=== PATIENT | female | born 1995 | race Caucasian/White ===

== ENCOUNTER 2017-07-22 05:54 | Inpatient (IN) | payer OTHER ==
[2017-07-22] MEDS ORDERED: LIDOCAINE 1% (PF) 10 MG/ML (30 ML SDV) SQ PRN (06:16)
[2017-07-22] MEDS ORDERED: TERBUTALINE 1 MG/ML VIAL SQ PRN (06:16)
[2017-07-22] MEDS ORDERED: METHYLERGONOVINE 0.2 MG/ML 1 ML AMP IM PRN (06:16)
[2017-07-22] MEDS ORDERED: CARBOPROST TROMETHAMINE 250 MCG/ML 1 ML AMP IM PRN (06:16)
[2017-07-22] MEDS ORDERED: OXYTOCIN 10 UNIT/ML 1 ML VIAL IM PRN (06:16)
[2017-07-22 06:52] LABS: Basophils % (A) 0 %; Eosinophils # (A) 0.2 k/uL (0-0.7); Eosinophils % (A) 1 %; HCT 36.9 % (34.0-46.0); HGB 12.7 gm/dL (11.4-16.0); Lymphocytes # (A) 2.5 k/uL (1.0-4.8); Lymphocytes % (A) 16 %; MCH 32.1 pg (25.0-35.0); MCHC 34.3 g/dL (31.0-37.0); MCV 93.8 fL (80.0-100.0); Mean Platelet Volume 9.1; Monocytes # (A) 0.9 k/uL (0-1.0); Monocytes % (A) 6 %; Neutrophils # (A) 11.7 k/uL (1.3-7.7); Neutrophils % (A) 74 %; Platelet Count 224 k/uL (150-450); RBC 3.94 m/uL (3.80-5.40); RDW 13.4 % (11.5-15.5); WBC 15.7 k/uL (4.0-11.0)
[2017-07-22 06:58] LABS: Glucose,Urine (UA) Negative (Negative); Ketones,Urine Negative (Negative); Protein,Urine Negative (Negative)
[2017-07-22] MEDS: LACTATED RINGERS 1,000 ML IV SCH ×3 (07:00→15:52)
[2017-07-22] MEDS: OXYTOCIN 20 UNITS/1000 ML NS 1,000 ML IV SCH ×3 (07:00→23:17)
[2017-07-22 07:19] VITALS: BMI 33.0
--- NOTE | 2017-07-22 08:34 | P.HPOB ---
History of Present Illness H&P Date: 07/22/17 Chief Complaint: IUP at 37-5/7 weeks, gestational hypertension This is a 21-year-old 4 para 0030 at 37-5/7 weeks with an estimated due date of 08/07/2017. Patient is been watched closely for elevated blood pressures. Patient is noted to be truly gestational hypertension. Patient has had preeclampsia labs done which have been negative in nature this morning she states she feels well yesterday she was complaining of a headache. She notes good movement and denies loss of fluid or vaginal bleeding. On blood work her blood type was noted to be O+, rubella immune, RPR nonreactive, hepatitis B surface antigen negative, HIV negative, GBS negative, of note patient did have an ultrasound revealing dilation of the renal pelvis which has been stable through the . Review of Systems Constitutional: Denies chills, Denies fever Cardiovascular: Reports as per HPI, Reports edema, Denies chest pain Gastrointestinal: Reports nausea, Reports vomiting, Denies constipation, Denies diarrhea Genitourinary: Reports Past Medical History Past Medical History: No Reported History History of Any Multi-Drug Resistant Organisms: None Reported Past Surgical History: No Surgical Hx Reported Past Anesthesia/Blood Transfusion Reactions: No Reported Reaction Past Psychological History: Anxiety, Depression Smoking Status: Current every day smoker Past Alcohol Use History: None Reported Past Drug Use History: None Reported - Past Family History Mother Family Medical History: No Reported History Medications and Allergies Home Medications Medication Instructions Recorded Confirmed Type Pnv,Calcium 72/Iron/Folic Acid 1 tab PO DAILY 07/05/17 07/22/17 History [ Plus Tablet] Ranitidine HCl [Zantac] 150 mg PO BID 07/05/17 07/22/17 History Acetaminophen [Tylenol] 500 mg PO Q4-6H PRN 07/22/17 07/22/17 History Calcium Carbonate [Tums] 500 mg PO Q4HR PRN 07/22/17 07/22/17 History Allergies Allergy/AdvReac Type Severity Reaction Status Date / Time amoxicillin Allergy Anaphylaxis Verified 07/22/17 06:13 Penicillins Allergy Anaphylaxis Verified 07/22/17 06:13 Exam Osteopathic Statement: *. No significant issues noted on an osteopathic structural exam other than those noted in the History and Physical/Consult. - Vital Signs Vital signs: Vital Signs Temp Pulse Resp BP 07/22/17 07:11 97.6 F 96 16 140/83 Intake and Output 07/21/17 07/22/17 07/22/17 22:59 06:59 14:59 Other: Weight 82.1 kg 82.1 kg Results Result Diagrams: 07/22/17 06:30 Abnormal Lab Results - Last 24 Hours (Table) 07/22/17 Range/Units 06:30 WBC 15.7 H (4.0-11.0) k/uL Neutrophils # 11.7 H (1.3-7.7) k/uL Assessment and Plan (1) Gestational HTN Current Visit: Yes Status: Acute Code(s): O13.9 - GESTATIONAL HTN W/O SIGNIFICANT PROTEINURIA, UNSP TRIMESTER SNOMED Code(s): 23831357 Plan: Given her elevated blood pressures and symptoms of headache nausea vomiting plan is to induce labor via Pitocin. Will plan on Pitocin induction of labor per protocol, patient states understanding of delivery at 37 weeks given her gestational age. We will order Stadol, epidural as needed for analgesia. Time with Patient: Less than 30
[2017-07-22 08:38] LABS: ALT 23 U/L (9-52); AST 16 U/L (14-36); Blood Urea Nitrogen 5 mg/dL (7-17); Uric Acid 5.1 mg/dL (3.7-7.4)
[2017-07-22 08:54] LABS: LDH 379 U/L (313-618)
[2017-07-22] MEDS: BUTORPHANOL 1 MG/ML 1 ML VIAL IV PRN ×2 (10:24→12:31)
[2017-07-22] MEDS ORDERED: fentaNYL (PF) 50 MCG/ML 5 ML AMP ONE ×2 (14:10)
[2017-07-22] MEDS ORDERED: BUPIVACAINE (PF) 0.25% 30 ML VIAL ONE (14:10)
[2017-07-22] MEDS ORDERED: LANOLIN CREAM 5 GM TUBE TOPICAL PRN (22:45)
[2017-07-22] MEDS ORDERED: WITCH HAZEL 1 EACH MED..PAD TOPICAL PRN (22:45)
[2017-07-22] MEDS ORDERED: diphenhydrAMINE 50 MG/ML 1 ML VIAL IVP PRN ×2 (22:45)
[2017-07-22] MEDS ORDERED: ZOLPIDEM 5 MG TAB PO PRN (22:45)
[2017-07-22] MEDS ORDERED: SIMETHICONE 80 MG CHEWABLE PO PRN (22:45)
[2017-07-22] MEDS ORDERED: BENZOCAINE/MENTHOL SPRAY 1 GM/SPRAY AEROSOL TOPICAL PRN (22:45)
[2017-07-22] MEDS ORDERED: diphenhydrAMINE 25 MG CAP PO PRN (22:45)
[2017-07-22] MEDS ORDERED: HYDROCORTISONE 2.5% RECTAL CREAM 30 GM TUBE RECTAL PRN (22:45)
[2017-07-22] MEDS ORDERED: diphenhydrAMINE 50 MG CAP PO PRN (22:45)
--- NOTE | 2017-07-22 22:56 | P.PROBDLV ---
Vaginal Delivery Note - . Vaginal Delivery Note: This is a 21yo at 37 5/7 weeks, EDC 08/07/2017. Patient was being monitored for gestational htn, and induction was scheduled secondary to this. Pt progressed to complete, and began pushing. head was delivered gently, the anterior shoulder was then delivered by gentle downward traction, followed by the posterior shoulder, and body. Infant was then placed on the maternal abdomen, spontaneous cry was noted at delivery. infant girl delivered at 2230, weight 7-1.4, apgars of 8-9 at 1 and 5 minutes respectively. EBL was 300cc. the placenta was delivered spontaneously intact with a 3VC. inspection of the patients vaginal vault, bilateral labial laceration are noted and hemostatic. uterus is firm at the umbilicus. pt and infant tolerated delivery well
[2017-07-22] MEDS: IBUPROFEN 600 MG TAB PO PRN (23:03)
[2017-07-23] MEDS: ACETAMINOPHEN TAB 325 MG TAB PO PRN ×4 (01:28→18:07)
[2017-07-23] MEDS: SENNOSIDES-DOCUSATE SODIUM 1 EACH TAB PO SCH ×2 (07:35→22:57)
[2017-07-23] MEDS: LACTATED RINGERS 1,000 ML IV SCH (08:10)
--- NOTE | 2017-07-23 08:10 | P.PNOBGVD ---
Subjective - Subjective Principal diagnosis: day #1 status post normal spontaneous vaginal delivery Interval history: Patient is doing well. She did note an elevated blood pressure this morning 157 /98 but denies headache or abdominal pain. She is ambulating and voiding without difficulty, tolerating regular diet without nausea or vomiting. She states her pain is controlled. Patient reports: Reports appetite normal, Reports voiding normally, Reports pain well controlled, Reports ambulating normally : doing well Objective - Latest Vital Signs Latest vital signs: Vital Signs Temp Pulse Resp BP 07/23/17 07:48 98.2 F 80 16 157/93 07/23/17 04:30 98.2 F 80 16 147/78 07/23/17 00:41 98.2 F 105 H 16 147/70 07/23/17 00:13 94 16 146/67 07/22/17 23:43 88 18 143/68 07/22/17 23:26 105 H 18 155/70 07/22/17 23:11 109 H 18 150/84 07/22/17 22:56 101 H 18 147/73 07/22/17 22:43 98.6 F 120 H 20 148/104 Intake and Output 07/22/17 07/23/17 07/23/17 22:59 06:59 14:59 Intake Total 90 Output Total 500 Balance -500 90 Intake: Intake, IV Titration 90 Amount Oxytocin 20 Units/1000 ml 90 Ns 1,000 ml @ Per Protocol IV .Q0M [facility] Rx#: [id number] Output: Urine 500 Other: # Voids 1 - Exam Extremities: Present: normal Abdomen: Present: soft Uterus: Present: firm - Labs Labs: Abnormal Lab Results - Last 24 Hours (Table) 07/22/17 Range/Units 06:30 BUN 5 L (7-17) mg/dL Creatinine 0.46 L (0.52-1.04) mg/dL Assessment and Plan (1) Gestational HTN Current Visit: Yes Status: Acute Code(s): O13.9 - GESTATIONAL HTN W/O SIGNIFICANT PROTEINURIA, UNSP TRIMESTER SNOMED Code(s): 19072976 (2) Status post vaginal delivery Current Visit: Yes Status: Acute Code(s): SOR1135 - SNOMED Code(s): 892868030 Plan: Patient is doing well we'll continue routine care. Given her elevated blood pressure we will monitor this morning and assess the need for labetalol.
[2017-07-23] MEDS: OXYTOCIN 20 UNITS/1000 ML NS 1,000 ML IV SCH (08:11)
[2017-07-23] MEDS: PRENATAL VIT-IRON-FOLIC ACID 1 EACH CAP PO SCH (08:41)
[2017-07-23] MEDS: IBUPROFEN 600 MG TAB PO PRN (19:34)
[2017-07-23 23:54] VITALS: RESP 18; TEMP 97.9
[2017-07-24] MEDS: ACETAMINOPHEN TAB 325 MG TAB PO PRN (01:13)
[2017-07-24 03:59] VITALS: PULSE 66
[2017-07-24 04:01] VITALS: BP 133/89
[2017-07-24] MEDS: SENNOSIDES-DOCUSATE SODIUM 1 EACH TAB PO SCH (09:10)
[2017-07-24] MEDS: PRENATAL VIT-IRON-FOLIC ACID 1 EACH CAP PO SCH (11:25)
--- NOTE | 2017-07-24 11:42 | P.DS ---
Providers Date of admission: 07/22/17 05:54 Expected date of discharge: 07/24/17 Attending physician: Jackelyn Winston Primary care physician: Stated None - Discharge Diagnosis(es) (1) Gestational HTN Current Visit: Yes Status: Acute (2) Status post vaginal delivery Current Visit: Yes Status: Acute Hospital Course: The patient is a 21-year-old 4 para 0030 admitted at 37-5/7 weeks by good dating parameters. She is admitted for increasing -induced hypertension without evidence of preeclampsia. Aside from the hypertension, her has been uncomplicated and group B strep status is negative. On labor and delivery, she had Pitocin augmentation started and later underwent artificial rupture of membranes demonstrating clear fluid. She had an epidural catheter placed for analgesia and ultimately progressed to complete where after she pushed to a normal spontaneous vaginal delivery of a viable 7 lbs. 1 oz. baby girl with Apgars of 8 at 1 minute and 9 at 5 minutes. Her course was unremarkable though she did have 2 elevated blood pressures the middle of the night last night following passage of a large blood clot. Blood pressures otherwise remained stable and the range not requiring treatment. She was deemed stable for discharge by post day #2 and was discharged home to follow-up in the office in 6 weeks' time routinely. Discharge instructions included calling for any significantly increased bleeding or foul-smelling lochia, significantly increased fever or abdominal pain, perineal complaints, breast complaints, or anything else that concerned her. She was additionally instructed to have nothing in the vagina for at least 6 weeks time to include intercourse. She understood her instructions and agrees to follow up as noted above. Discharge medications included only [id number] analgesic pain medications as well as continued vitamins as she has opted to breast- feed. Maternal blood type is O+ and rubella status is immune. Procedures: #1. Pitocin induction #2. Artificial rupture of membranes #3. Epidural analgesia #4. Normal spontaneous vaginal delivery Patient Condition at Discharge: Good Plan - Discharge Summary New Discharge Prescriptions: No Action Pnv,Calcium 72/Iron/Folic Acid [ Plus Tablet] 1 tab PO DAILY Ranitidine HCl [Zantac] 150 mg PO BID Acetaminophen [Tylenol] 500 mg PO Q4-6H PRN PRN Reason: Pain Calcium Carbonate [Tums] 500 mg PO Q4HR PRN PRN Reason: Heartburn Discharge Medication List Pnv,Calcium 72/Iron/Folic Acid [ Plus Tablet] 1 tab PO DAILY 07/05/17 [ History] Ranitidine HCl [Zantac] 150 mg PO BID 07/05/17 [History] Acetaminophen [Tylenol] 500 mg PO Q4-6H PRN 07/22/17 [History] Calcium Carbonate [Tums] 500 mg PO Q4HR PRN 07/22/17 [History] Follow up Appointment(s)/Referral(s): Jackelyn Winston DO [Doctor of Osteopathic Medicine] - 6 Weeks Discharge Disposition: HOME SELF-CARE
== END 2017-07-24 11:55 | disposition home or self-care (01) | DRG 775 ==
LOC: 4FBP 05:54
PROVIDERS: ADMIT Obstetrics & Gynecology Obstetrics; ATTEND Obstetrics & Gynecology Obstetrics
PROC: 10E0XZZ Delivery of Products of Conception, External Approach (ICD-10-PCS; principal; 2017-07-22)
PROC: 3E033VJ Introduction of Other Hormone into Peripheral Vein, Percutaneous Approach (ICD-10-PCS; 2017-07-22)
PROC: 10907ZC Drainage of Amniotic Fluid, Therapeutic from Products of Conception, Via Natural or Artificial Opening (ICD-10-PCS; 2017-07-22)
PROC: 3E0R3BZ Introduction of Anesthetic Agent into Spinal Canal, Percutaneous Approach (ICD-10-PCS; 2017-07-22)
PROC: 00HU33Z Insertion of Infusion Device into Spinal Canal, Percutaneous Approach (ICD-10-PCS; 2017-07-22)
DX: O13.4 Gestational [pregnancy-induced] hypertension without significant proteinuria, complicating childbirth (principal); O99.344 Other mental disorders complicating childbirth; F32.9 Major depressive disorder, single episode, unspecified; O70.0 First degree perineal laceration during delivery; F41.9 Anxiety disorder, unspecified; Z37.0 Single live birth; Z3A.37 37 weeks gestation of pregnancy
CPT/HCPCS: 81003; 82565; 83615; 84450; 84460; 84520; 84550; 85025; 88307

== ENCOUNTER → 2019-10-11 | Outpatient (CLI) | payer OTHER ==
--- NOTE | 2019-10-11 15:15 | US ---
EXAMINATION TYPE: Transabdominal DATE OF EXAM: 10/11/2019 2:56 PM COMPARISON: NONE CLINICAL HISTORY: R68.89 ABNORMAL LABS. HcG not doubling EXAM PERFORMED: Transvaginal (TV) and Transabdominal (TA) EXAM MEASUREMENTS: GESTATIONAL AGE / DATING Physician Established: Not yet established Dates by LMP: (5 weeks/1 days) EDC: 06/11/2020 Dates by First Scan: No previous this is first scan ( Dates by Current Scan for: No pole seen at this time MATERNAL ANATOMY Uterus: 8.1 x 3.9 x 7.4 cm Right Ovary: 3.1 x 1.8 x 1.4 cm Left Ovary: 2.4 x 1.7 x 1.4 cm Post CDS / Adnexa: Tiny amount of free fluid visualized Presence of free fluid: Yes Presence of corpus luteal cyst: No Presence of subchorionic bleed: No GESTATION / SURVEY IUP: No pole or yolk sac visualized Date of LMP: 09/05/2019 Beta HcG (if available): Not available at this time No pole or yolk sac visualized at this time. Anechoic area visualized within endometrium measur ing 2mm, too small to date. IMPRESSION: Tiny fluid-filled sac within the endometrium is too small to characterize could be on the basis of a normal too early to detect. Pseudogestational sac of ectopic not excluded correla te with serial beta hCG and pelvic ultrasound as clinically warranted.
== END | disposition home or self-care (01) ==
LOC: RADUSWWP 14:16
PROVIDERS: ATTEND Obstetrics & Gynecology Obstetrics
DX: N85.8 Other specified noninflammatory disorders of uterus (principal); R68.89 Other general symptoms and signs
CPT/HCPCS: 76801; 76817

== ENCOUNTER 2020-09-27 10:36 | Outpatient (CLI) | payer OTHER ==
[2020-09-27 11:27] VITALS: BP 134/72; PULSE 65; RESP 14; TEMP 96.6
--- NOTE | 2020-10-23 15:17 | P.MSEPDOC ---
Presenting Problems - Arrival Data Date of Arrival on Unit: 09/27/20 Time of Arrival on Unit: 10:47 Mode of Transport: Ambulatory - Complaint OB-Reason for Admission/Chief Complaint: Rule Out SROM Medical History - Information : 12 Para: 1 Term: 1 : 0 Abortions: Spontaneous or Elective: 0 Number of Living Children: 1 - Gestational Age Gestational Age by VANCE (wks/days): 37 Weeks and 4 Days Review of Systems - Review of Systems Constitutional: No problems Breast: No problems ENT: No problems Cardiovascular: No problems Respiratory: No problems Gastrointestinal: No problems Genitourinary: No problems Musculoskeletal: No problems Neurological: No problems Skin: No problems Vital Signs - Temperature Temperature: 96.6 F Temperature Source: Tympanic - Pulse Right Brachial Pulse Rate: 65 Pulse Assessment Method: Automatic Cuff - Respirations Respiratory Rate: 14 Oxygen Delivery Method: Room Air - Blood Pressure Right Arm Blood Pressure: 134/72 Blood Pressure Mean: 92 Blood Pressure Source: Automatic Cuff Medical Screen Scoring - Assessment - Baby A Baseline FHR: 135 Physician Notification - Physician Notified Physician Notified Date: 09/27/20 Physician Notified Time: 11:08 Physician: Jackelyn Winston New Order Received: Yes - Notification Comment Comment: d/c home f/up next appt Disposition - Disposition OB Disposition: Discharge to home Discharge Date: 09/27/20 Discharge Time: 11:17 I agree with the RN Medical Screening Exam: Yes Case reviewed; plan agreed upon as documented in EMR&OBIX.: Yes Diagnosis: FALSE LABOR AT OR AFTER 37 COMPLETED WEEKS OF GESTATION
== END 2020-09-27 11:31 | disposition home or self-care (01) ==
LOC: FBPOP 10:36
PROVIDERS: ATTEND Obstetrics & Gynecology Obstetrics
DX: O47.1 False labor at or after 37 completed weeks of gestation (principal); F17.200 Nicotine dependence, unspecified, uncomplicated; O99.333 Smoking (tobacco) complicating pregnancy, third trimester; Z3A.37 37 weeks gestation of pregnancy; Z88.0 Allergy status to penicillin; Z88.1 Allergy status to other antibiotic agents
CPT/HCPCS: 59025; 84112; G0463; 99213

== ENCOUNTER 2020-10-07 06:00 | Inpatient (IN) | payer OTHER ==
[2020-10-07] MEDS ORDERED: LIDOCAINE 0.5% (PF) 5 MG/ML (50 ML SDV) SQ PRN (06:28)
[2020-10-07] MEDS ORDERED: OXYTOCIN 10 UNIT/ML 1 ML VIAL IM PRN (06:28)
[2020-10-07] MEDS ORDERED: METHYLERGONOVINE 0.2 MG/ML 1 ML AMP IM PRN (06:28)
[2020-10-07] MEDS ORDERED: TERBUTALINE 1 MG/ML VIAL SQ PRN (06:28)
[2020-10-07] MEDS ORDERED: CARBOPROST TROMETHAMINE 250 MCG/ML 1 ML AMP IM PRN (06:28)
[2020-10-07] MEDS ORDERED: OXYTOCIN 30 UNITS/500 ML NS 30 UNIT in SALINE 1 500ML.BAG IV SCH ×2 (06:30→15:00)
[2020-10-07] MEDS: LACTATED RINGERS 1,000 ML IV SCH ×2 (06:49→20:29)
[2020-10-07] MEDS: CLINDAMYCIN 900 MG in DEXTROSE 5% IN WATER 50 ML IVPB SCH ×4 (06:56→20:29)
[2020-10-07 07:04] LABS: Basophils # (A) 0.1 k/uL (0-0.2); Basophils % (A) 0 %; Eosinophils # (A) 0.3 k/uL (0-0.7); Eosinophils % (A) 2 %; HCT 32.1 % (34.0-46.0); HGB 11.3 gm/dL (11.4-16.0); Lymphocytes # (A) 2.7 k/uL (1.0-4.8); Lymphocytes % (A) 17 %; MCH 32.8 pg (25.0-35.0); MCHC 35.1 g/dL (31.0-37.0); MCV 93.5 fL (80.0-100.0); Mean Platelet Volume 9.2; Monocytes # (A) 0.9 k/uL (0-1.0); Monocytes % (A) 6 %; Neutrophils # (A) 12.1 k/uL (1.3-7.7); Neutrophils % (A) 74 %; Platelet Count 205 k/uL (150-450); RBC 3.43 m/uL (3.80-5.40); RDW 14.1 % (11.5-15.5); WBC 16.3 k/uL (3.8-10.6)
[2020-10-07 07:27] LABS: Amphetamine Screen,Urine Not Detected (NotDetected); Barbiturate Screen,Urine Not Detected (NotDetected); Benzodiazepines Screen,Urine Not Detected (NotDetected); Cocaine Screen,Urine Not Detected (NotDetected); Methadone Screen, Urine Not Detected (NotDetected); Opiate Screen,Urine Not Detected (NotDetected); Oxycodone Screen, Urine Not Detected (NotDetected); Phencyclidine Screen,Urine Not Detected (NotDetected); Tricyclic Antidepressant,Urine Not Detected (NotDetected); Urn Cannabinoid Scrn Detected (NotDetected)
[2020-10-07] MEDS ORDERED: BUTORPHANOL 1 MG/ML 1 ML VIAL IV PRN (11:34)
--- NOTE | 2020-10-07 13:36 | P.HPOB ---
History of Present Illness H&P Date: 10/07/20 Chief Complaint: IUP @ 39 0/7 This is a 25-year-old 7 para 1051 at 39-0/7 weeks presents to labor and delivery for elective induction of labor. Patient has been receiving routine care with myself. care has been essentially uncomplicated. Patient does admit to marijuana use, and is a smoker. Patient was also diagnosed with COVID-19 around 13 weeks of . Patient is followed with testing and growth scans which have been within normal limits. On bloodwork this patient's blood type of O+, rubella status nonimmune, hep Bonnie surface antigen negative, HIV negative, RPR nonreactive, group beta strep is noted to be positive. Today patient does note good movement denies vaginal bleeding loss of fluid or contractions. Review of Systems Constitutional: Denies fatigue, Denies fever Ears, nose, mouth and throat: Denies headache Respiratory: Denies dyspnea Gastrointestinal: Denies nausea, Denies vomiting Genitourinary: Reports Past Medical History Past Medical History: No Reported History History of Any Multi-Drug Resistant Organisms: None Reported Past Surgical History: No Surgical Hx Reported Past Anesthesia/Blood Transfusion Reactions: No Reported Reaction Past Psychological History: Anxiety, Depression Smoking Status: Current every day smoker Past Alcohol Use History: None Reported Past Drug Use History: None Reported - Past Family History Mother Family Medical History: No Reported History Medications and Allergies Home Medications Medication Instructions Recorded Confirmed Type Pnv,Calcium 72/Iron/Folic Acid 1 tab PO DAILY 07/05/17 10/07/20 History [ Plus Tablet] Famotidine [Pepcid] 10 mg PO DAILY 09/27/20 10/07/20 History Allergies Allergy/AdvReac Type Severity Reaction Status Date / Time amoxicillin Allergy Anaphylaxis Verified 10/07/20 06:20 Penicillins Allergy Anaphylaxis Verified 10/07/20 06:20 Exam Osteopathic Statement: *. No significant issues noted on an osteopathic structural exam other than those noted in the History and Physical/Consult. Vital Signs Temp Pulse Resp BP 10/07/20 07:10 97.2 F L 83 16 132/68 Intake and Output 10/06/20 10/07/20 10/07/20 22:59 06:59 14:59 Other: Weight 79.379 kg 79.379 kg Targeted physical exam is performed and state and also well-nourished well- developed female in no acute distress, breathing is nonlabored, heart has regular rate and rhythm, abdomen is gravid. On cervical exam she is 3-4/50/-2 station. heart tones are manageable category 1, she is ruby regularly. Results Result Diagrams: 10/07/20 06:51 Abnormal Lab Results - Last 24 Hours (Table) 10/07/20 10/07/20 Range/Units 06:30 06:51 WBC 16.3 H (3.8-10.6) k/uL RBC 3.43 L (3.80-5.40) m/uL Hgb 11.3 L (11.4-16.0) gm/dL Hct 32.1 L (34.0-46.0) % Neutrophils # 12.1 H (1.3-7.7) k/uL U Marijuana (THC) Screen Detected H (NotDetected) Assessment and Plan (1) Term Current Visit: Yes Status: Acute Code(s): Z34.90 - ENCNTR FOR SUPRVSN OF NORMAL , UNSP, UNSP TRIMESTER SNOMED Code(s): 78112699 (2) Positive GBS test Current Visit: Yes Status: Acute Code(s): B95.1 - STREPTOCOCCUS, GROUP B, CAUSING DISEASES CLASSD ELSR SNOMED Code(s): 540591046 (3) Marijuana use Current Visit: Yes Status: Acute Code(s): F12.90 - CANNABIS USE, UNSPECIFIED, UNCOMPLICATED SNOMED Code(s): 080902995 (4) Tobacco abuse Current Visit: Yes Status: Acute Code(s): Z72.0 - TOBACCO USE SNOMED Code(s): 769001592 Plan: 25-year-old 01 at 39-3/7 weeks that presents to labor and delivery for elective induction of labor. Patient was admitted and Pitocin induction of labor is begun per hospital protocol. Patient is offered Stadol and epidural and she will consider. Anticipate spontaneous vaginal delivery later today.
[2020-10-07] MEDS ORDERED: diphenhydrAMINE 50 MG/ML 1 ML VIAL IVP PRN ×2 (14:52)
[2020-10-07] MEDS ORDERED: BENZOCAINE/MENTHOL SPRAY 1 GM/SPRAY AEROSOL TOPICAL PRN (14:52)
[2020-10-07] MEDS ORDERED: LANOLIN CREAM 5 GM TUBE TOPICAL PRN (14:52)
[2020-10-07] MEDS ORDERED: HYDROCORTISONE 2.5% RECTAL CREAM 30 GM TUBE RECTAL PRN (14:52)
[2020-10-07] MEDS ORDERED: diphenhydrAMINE 50 MG CAP PO PRN (14:52)
[2020-10-07] MEDS ORDERED: SIMETHICONE 80 MG CHEWABLE PO PRN (14:52)
[2020-10-07] MEDS ORDERED: diphenhydrAMINE 25 MG CAP PO PRN (14:52)
[2020-10-07] MEDS ORDERED: ZOLPIDEM 5 MG TAB PO PRN (14:52)
[2020-10-07] MEDS ORDERED: MEASLES-MUMPS-RUBELLA VACC/PF 12,500 UNIT/0.5 ML VIAL SQ ONE (20:20)
[2020-10-07] MEDS: SENNOSIDES-DOCUSATE SODIUM 1 EACH TAB PO SCH (21:38)
[2020-10-08] MEDS: ACETAMINOPHEN TAB 325 MG TAB PO PRN ×2 (00:51→07:48)
[2020-10-08] MEDS: IBUPROFEN 600 MG TAB PO SCH ×5 (02:07→16:10)
[2020-10-08] MEDS: SENNOSIDES-DOCUSATE SODIUM 1 EACH TAB PO SCH (07:48)
[2020-10-08 08:12] VITALS: BP 136/74; PULSE 52; RESP 18; TEMP 97
[2020-10-08] MEDS ORDERED: PRENATAL VIT-IRON-FOLIC ACID 1 EACH CAP PO SCH (09:00)
--- NOTE | 2020-10-08 11:34 | P.PROBDLV ---
Vaginal Delivery Note - . Vaginal Delivery Note: 25-year-old 7 para 1051 that presented to labor and delivery at 39-0/7 weeks for scheduled elective induction of labor. Patient was admitted to labor and delivery Pitocin induction of labor was begun per hospital protocol. Patient underwent amniotomy and clear fluid was obtained. Patient progressed through labor becoming uncomfortable and did request 1 dose of IV Stadol. Patient progressed to complete began pushing and had a normal spontaneous vaginal delivery of a viable female infant at 1444, weight 7-3, and Apgars of 9- 9. A loose nuchal cord was noted at delivery and reduced at the perineum. After two-minute delayed the umbilical cord was doubly clamped and cut, the placenta was delivered spontaneously intact with a three-vessel cord being noted. The uterus is noted to be firm and below the umbilicus at this time. Estimated blood loss 200 mL. Patient tolerated delivery well and are resting comfortably. All counts were correct 2 at the end of the delivery.
--- NOTE | 2020-10-08 11:40 | P.DS ---
Providers Date of admission: 10/07/20 06:05 Expected date of discharge: 10/08/20 Attending physician: Jackelyn Winston Primary care physician: Stated None - Discharge Diagnosis(es) (1) Term Current Visit: Yes Status: Acute (2) Positive GBS test Current Visit: Yes Status: Acute (3) Marijuana use Current Visit: Yes Status: Acute (4) Tobacco abuse Current Visit: Yes Status: Acute (5) Status post vaginal delivery Current Visit: No Status: Acute Hospital Course: This is a 25yo G2 now P2 s/p . Patient was admitted yesterday 10/07 for planned elective IOL. she was admitted and pitocin induction of labor was begun. she underwent amniotomy and clear fluid was obtained. she did receive one dose of stadol during labor. she had a normal spontaneous vaginal delivery of a viable female . No vaginal laceration were appreciated during delivery. she is feeling well this am, she is ambulating and voiding without difficulty. she noted moderate lochia. she is breast feeding. she states her pain is controlled with po ibuprofen. she does desires discharge home today at 24 hours if possible. Patient Condition at Discharge: Good Plan - Discharge Summary New Discharge Prescriptions: No Action Pnv,Calcium 72/Iron/Folic Acid [ Plus Tablet] 1 tab PO DAILY Famotidine [Pepcid] 10 mg PO DAILY Discharge Medication List Pnv,Calcium 72/Iron/Folic Acid [ Plus Tablet] 1 tab PO DAILY 07/05/17 [History] Famotidine [Pepcid] 10 mg PO DAILY 09/27/20 [History] Follow up Appointment(s)/Referral(s): Jackelyn Winston DO [Doctor of Osteopathic Medicine] - 4 Weeks Patient Instructions/Handouts: Vaginal Delivery (DC), Vaginal Delivery (GEN) Discharge Disposition: HOME SELF-CARE
== END 2020-10-08 16:00 | disposition home or self-care (01) | DRG 806 ==
LOC: 4FBP 06:05
PROVIDERS: ADMIT Obstetrics & Gynecology Obstetrics; ATTEND Obstetrics & Gynecology Obstetrics
PROC: 10E0XZZ Delivery of Products of Conception, External Approach (ICD-10-PCS; principal; 2020-10-07)
DX: O69.81X0 Labor and delivery complicated by cord around neck, without compression, not applicable or unspecified (principal); O98.52 Other viral diseases complicating childbirth; Z37.0 Single live birth; O99.324 Drug use complicating childbirth; Z3A.39 39 weeks gestation of pregnancy; Z86.16 Personal history of COVID-19; O99.344 Other mental disorders complicating childbirth; F41.9 Anxiety disorder, unspecified; F32.9 Major depressive disorder, single episode, unspecified; F17.200 Nicotine dependence, unspecified, uncomplicated; F12.90 Cannabis use, unspecified, uncomplicated; O99.334 Smoking (tobacco) complicating childbirth; O99.824 Streptococcus B carrier state complicating childbirth
CPT/HCPCS: 80306; 85025; 86850; 86900; 86901; 88307; 90471; 90707